=== PATIENT | male | born 2000 | race African-American/Black ===

== ENCOUNTER 2022-08-20 20:37 | Emergency (ER) | payer MEDICAID ==
[~2022-08-20] VITALS: Ht 177.8 cm; Wt 104.3 kg
[2022-08-20 22:48] VITALS: BP 134/70
[2022-08-20] MEDS ORDERED: CEFTRIAXONE 1 G VIAL IM ONE (23:30)
[2022-08-20] MEDS ORDERED: SULFAMETH/TRIMETH 800/160 MG 1 UDTAB TABLET PO ONE (23:30)
[2022-08-20] MEDS ORDERED: SULF1TAB48 PO (23:31)
[2022-08-20] MEDS ORDERED: CEPH500C2 PO (23:31)
[2022-08-20] MEDS ORDERED: CEFTRIAXONE 1 G VIAL ONE (23:35)
[2022-08-20] MEDS ORDERED: SULFAMETH/TRIMETH 800/160 MG 1 UDTAB TABLET ONE (23:35)
== END 2022-08-21 00:03 | disposition home or self-care (01) ==
LOC: ER 20:44
DX: L02.416 Cutaneous abscess of left lower limb (principal); J45.909 Unspecified asthma, uncomplicated
CPT/HCPCS: 99283; 96372; J0696